=== PATIENT | female | born 1965 | race Caucasian/White ===

== ENCOUNTER 2016-07-06 15:20 | Emergency (ER) | payer MEDICARE ==
[~2016-07-06] VITALS: Ht 170.2 cm; Wt 141.0 kg
[~2016-07-06 15:20] MED LIST: ANAPROX275 MG OR; ATENOLOL25 MG PO; BACTRIM1 TAB OR; BENTYL20 MG OR; BENZTROPINE0.5 MG PO; BUSPIRONE15 MG PO; CARBAMAZEPIN100 MG OR; CITALOPRAM40 MG PO; CLONAZEPAM0.5 MG OR; DICLOFENAC75 MG OR; DIFLUCAN150 MG OR; EFFEXOR75 MG OR; FLAGYL500 MG OR; FLEXERIL OR; FLUOXETINE10 M1 OR; KLONOPIN0.5 MG OR; LORTAB 5 OR; LOTRISONE CREAM15 GM EX; MOTRIN400 MG OR; NAPROSYN500 MG OR; NAPROSYN500 MG PO; NEURONTIN300 MG PO; NEURONTIN600 MG PO; PROMETHAZINE25 MG OR; RISPERDAL1 MG OR; RISPERDAL2 MG PO; SEROQUEL25 MG OR; TEGRETOL200 MG PO; TRAZODONE100 MG OR; VALIUM5 MG OR; VICODIN ES1 TAB OR; VISTARIL PO; VISTARIL25 MG OR; XANAX0.5 MG OR; ZITHROMAX250 MG OR; ZOFRAN ODT8 MG SL; ZOLPIDEM5 M1 PO
[2016-07-06] MEDS ORDERED: MEVACOR10 MG PO (15:38)
[2016-07-06] MEDS ORDERED: CELEXA20 MG PO ×2 (15:40)
[2016-07-06 16:00] LABS: HEMATOCRIT 38.9 % (37.0-47.0); IMMATURE GRANULOCYTES 0.2 % (0.0-1.0); MEAN CELL VOLUME 86.1 fL CALC (80.0-100.0); MEAN CORPUSCULAR HGB 28.8 pG CALC (26.0-32.0); MEAN CORPUSCULAR HGB CONC 33.4 g/L CALC (32.0-36.0); NEUT# 5.15 thou/uL (2.00-7.15); RED BLOOD COUNT 4.52 mill/uL (4.20-5.60); RED CELL DISTRI WIDTH 13.5 % (11.5-15.5)
[2016-07-06 16:16] LABS: PROTHROMBIN TIME 10.4 SECONDS (9.0-12.5)
[2016-07-06 16:21] LABS: ALBUMIN 4.1 g/dL (3.2-5.0); ALKALINE PHOSPHATASE 72 u/l (38-126); AMYLASE 59 u/l (30-110); ANION GAP 15 (6-22 (CALC)); BILIRUBIN, TOTAL 0.3 mg/dL (0.0-1.4); BUN 14 mg/dL (7-17); BUN/CREATININE RATIO 15 (12-20 (CALC)); CALCIUM 9.7 mg/dL (8.4-10.2); CARBON DIOXIDE 24 mmol/l (22-30); CHLORIDE 106 mmol/l (95-108); GFR 59 ML/MIN (>=60 (CALC)); GFR FOR AFR.AMER. > 60 ML/MIN (>=60 (CALC)); GLUCOSE 130 mg/dL (65-105); LIPASE 186 u/l (23-300); POTASSIUM 3.9 mmol/l (3.5-5.1); SGOT/AST 22 u/l (14-36); SGPT/ALT 28 u/l (9-52); SODIUM 142 mmol/l (137-146); TOTAL PROTEIN 7.8 g/dL (6.3-8.2)
[2016-07-06 16:28] LABS: MYOGLOBIN 18 ng/mL (0 - 62)
[2016-07-06 18:49] VITALS: BP 106/56
== END 2016-07-06 18:50 | disposition left against medical advice (07) ==
LOC: ED 15:20
PROVIDERS: Emergency Medicine
DX: R07.9 Chest pain, unspecified (principal); F31.9 Bipolar disorder, unspecified; G89.29 Other chronic pain; M54.2 Cervicalgia; F41.9 Anxiety disorder, unspecified; F17.210 Nicotine dependence, cigarettes, uncomplicated; R94.31 Abnormal electrocardiogram [ECG] [EKG]

== ENCOUNTER 2019-01-20 09:14 | Day surgery (SDC) | payer MEDICARE ==
[~2019-01-20] VITALS: Ht 170.2 cm; Wt 141.5 kg
[~2019-01-20 09:14] MED LIST changes: +ATIVAN1 MG PO; +CELEXA20 MG PO; +DICLOFENAC SODI75 MG PO; +FUROSEMIDE20 MG PO; +K-TAB20 MEQ PO; +MEVACOR10 MG PO
[2019-01-20 12:39] VITALS: BP 96/50
== END 2019-01-20 12:55 | disposition home or self-care (01) ==
LOC: ENDO 09:14
PROVIDERS: ATTEND Surgery
PROC: 0DBM8ZX Excision of Descending Colon, Via Natural or Artificial Opening Endoscopic, Diagnostic (ICD-10-PCS; principal; 2019-01-20)
DX: Z12.11 Encounter for screening for malignant neoplasm of colon (principal); K63.5 Polyp of colon

== ENCOUNTER 2019-05-18 | Emergency (ER) | payer MEDICARE ==
[2019-05-18 17:58] LABS: HEMATOCRIT 38.4 % (37.0-47.0); HEMOGLOBIN 12.6 g/dl (12.0-16.0); IMMATURE GRANULOCYTES 0.3 % (0.0-5.0); MEAN CORPUSCULAR HGB 27.9 pG CALC (26.0-32.0); MEAN CORPUSCULAR HGB CONC 32.8 g/L CALC (32.0-36.0); NEUT# 4.94 thou/uL (2.00-7.15); RED BLOOD COUNT 4.52 mill/uL (4.20-5.60); RED CELL DISTRI WIDTH 13.3 % (11.5-15.5)
[2019-05-18 18:15] LABS: ANION GAP 14 (6-22 (CALC)); BUN 13 mg/dL (7-17); BUN/CREATININE RATIO 13 (12-20 (CALC)); CARBON DIOXIDE 28 mmol/l (22-30); CHLORIDE 101 mmol/l (95-108); GFR 58 ML/MIN (>=60 (CALC)); GFR FOR AFR.AMER. > 60 ML/MIN (>=60 (CALC)); POTASSIUM 3.9 mmol/l (3.5-5.1); SODIUM 138 mmol/l (137-146)
== END 2019-05-18 19:39 | disposition home or self-care (01) ==
PROVIDERS: Family Medicine
DX: R60.0 Localized edema (principal); F17.290 Nicotine dependence, other tobacco product, uncomplicated; R94.31 Abnormal electrocardiogram [ECG] [EKG]

== ENCOUNTER 2021-12-14 07:26 | Emergency (ER) | payer MEDICARE ==
[~2021-12-14] VITALS: Ht 170.2 cm; Wt 146.5 kg
[2021-12-14 07:31] VITALS: BP 136/53
[2021-12-14 08:30] VITALS: BP 136/53
[2021-12-14] MEDS ORDERED: CITRATE OF MEGNESIA PO (08:37)
== END 2021-12-14 09:30 | disposition home or self-care (01) ==
LOC: ED 07:26
DX: K59.00 Constipation, unspecified (principal); E66.9 Obesity, unspecified; F41.9 Anxiety disorder, unspecified; F31.9 Bipolar disorder, unspecified

== ENCOUNTER 2022-11-08 07:26 | Day surgery (SDC) | payer MEDICARE ==
[~2022-11-08] VITALS: Ht 170.2 cm; Wt 124.3 kg
[~2022-11-08 07:26] MED LIST changes: +ASPIRIN LOW81 M1 PO; +B12 PO; +BACLOFEN10 MG PO; +BIOTIN5000 MC2 PO; +CELEXA40 M1 PO; +CITRATE OF MEGNESIA PO; +HYDROXYZINE HYD25 MG PO; +LASIX40 MG PO; +LEVOTHYROXINE50 MC1 PO; +LINZESS145 MCG PO; +LOVASTATIN20 M1 PO; +MECLIZINE12.5 M1 PO; +ONDANSETRON4 MG PO; +PROPRANOLOL HCL20 MG PO; +VITAMIN D35000 UNI1 PO
[2022-11-08] MEDS ORDERED: PERCOCET 5/321 COMBO PO (08:40)
[2022-11-08 11:16] VITALS: BP 102/41
== END 2022-11-08 11:35 | disposition home or self-care (01) ==
LOC: ORM 07:26
PROVIDERS: ATTEND Surgery
PROC: 0FT44ZZ Resection of Gallbladder, Percutaneous Endoscopic Approach (ICD-10-PCS; principal; 2022-11-08)
DX: K80.10 Calculus of gallbladder with chronic cholecystitis without obstruction (principal); E11.9 Type 2 diabetes mellitus without complications
CPT/HCPCS: J0690; J1100

== ENCOUNTER 2023-04-22 08:51 | Day surgery (SDC) | payer MEDICARE ==
[~2023-04-22] VITALS: Ht 170.2 cm; Wt 110.7 kg
[~2023-04-22 08:51] MED LIST changes: +PERCOCET 5/321 COMBO PO; +RISPERDAL1 MG PO
[2023-04-22 11:46] VITALS: BP 112/54
== END 2023-04-22 11:56 | disposition home or self-care (01) ==
LOC: ENDO 08:51 → ORM 09:25 → ENDO 11:30 → ORM 12:00 → ENDO 12:05
PROVIDERS: ATTEND Internal Medicine Gastroenterology
PROC: 0D738ZZ Dilation of Lower Esophagus, Via Natural or Artificial Opening Endoscopic (ICD-10-PCS; principal; 2023-04-22)
PROC: 0DB48ZX Excision of Esophagogastric Junction, Via Natural or Artificial Opening Endoscopic, Diagnostic (ICD-10-PCS; 2023-04-22)
PROC: 0DB78ZX Excision of Stomach, Pylorus, Via Natural or Artificial Opening Endoscopic, Diagnostic (ICD-10-PCS; 2023-04-22)
PROC: 0DB38ZX Excision of Lower Esophagus, Via Natural or Artificial Opening Endoscopic, Diagnostic (ICD-10-PCS; 2023-04-22)
DX: K22.2 Esophageal obstruction (principal); K29.70 Gastritis, unspecified, without bleeding; K25.9 Gastric ulcer, unspecified as acute or chronic, without hemorrhage or perforation; K21.00 Gastro-esophageal reflux disease with esophagitis, without bleeding